=== PATIENT | female | born 1945 | race Caucasian/White ===

== ENCOUNTER 2017-02-04 08:43 | Observation (INO) | payer MEDICARE, MEDICAID ==
[2017-02-04] MEDS ORDERED: Ondansetron 4 MG/2 ML SDV IVPUSH ONE (08:59)
[2017-02-04] MEDS ORDERED: Sodium Chloride 0.9% 1,000 ML IV ONE (09:00)
[2017-02-04] MEDS ORDERED: Sodium Chloride 0.9% 5 ML Syringe FLUSH PRN (09:02)
[2017-02-04 09:36] LABS: SODIUM,NA 125 mmol/L (136-145)
[2017-02-04 09:37] LABS: CHLORIDE,CL 87 mmol/L (98-115)
[2017-02-04] MEDS ORDERED: Acetaminophen 325 MG Tab PO PRN (10:20)
--- NOTE | 2017-02-04 10:39 | EDM.PDOC ---
ED HPI GENERAL MEDICAL PROBLEM - General Chief Complaint: Gastrointestinal Problem Stated Complaint: NOT FEELING WELL..COLD?? Time Seen by Provider: 02/04/17 09:10 Source of Information: Reports: Patient History Limitations: Reports: No limitations - History of Present Illness INITIAL COMMENTS - FREE TEXT/NARRATIVE: 71-year-old female comes in today with complaints of not feeling well over the last 2 or 3 days. She reports some nausea, weakness and dizziness. She's been treating for an upper respiratory infection and is currently taking Augmentin. She was seen by Chani DAVIS this past Sunday. She reports that she has a history of salt deficiency in the past and does take salt tablets for this. She denies any headaches, chest pain, shortness of breath, abdominal pain. She does have a history of diverticulosis. She denies significant swelling or edema in her lower legs. She denies fevers or chills. He is brought in by her son to the ER for further evaluation. Onset: gradual Onset Date: 02/15/17 Duration: Day(s):, Getting worse Location: Reports: generalized Severity: moderate Improves with: Reports: None Worsens with: Reports: None Associated Symptoms: Reports: nausea/vomiting, weakness, other (dizziness). 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) - Related Data Allergies Allergy/AdvReac Type Severity Reaction Status Date / Time morphine Allergy Hives Verified 02/04/17 08:52 niacin Allergy Other Verified 02/04/17 08:52 Home Meds: Home Meds Amoxicillin/Clavulanate K [Augmentin 875 MG/125 MG] 1 tab PO BID 02/04/17 [ History] Aspirin 81 mg PO DAILY 02/04/17 [History] Calcium Carbonate/Vitamin D3 [Calcium 600 + Vit D 400 Softgl] 1 tab PO BID 02/04 [History] LORazepam [LORazepam] 0.5 mg PO BID 02/04/17 [History] Levothyroxine 150 mcg PO DAILY 02/04/17 [History] Losartan [Cozaar] 50 mg PO DAILY 02/04/17 [History] Meclizine [Antivert] 25 mg PO TID 02/04/17 [History] Metoprolol Succinate 25 mg PO DAILY 02/04/17 [History] Phenytoin 100 mg PO TID 02/04/17 [History] Ranitidine [Zantac] 150 mg PO BID 02/04/17 [History] amLODIPine Besylate [Amlodipine Besylate] 5 mg PO DAILY 02/04/17 [History] atorvaSTATin [Lipitor] 40 mg PO BEDTIME 02/04/17 [History] metFORMIN HCl [Metformin HCl ER] 500 mg PO 1800 02/04/17 [History] Past Medical History HEENT History: Reports: Cataract Cardiovascular History: Reports: High cholesterol, Hypertension Gastrointestinal History: Reports: Diverticulosis, GERD 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: Musculoskeletal History: Reports: Arthritis, Back pain, chronic, Osteoporosis Neurological History: Reports: Seizure Endocrine/Metabolic History: Reports: Diabetes, type II, Hypothyroidism, Obesity /BMI 30+, Osteoporosis, Vitamin D deficiency - Past Surgical History HEENT Surgical History: Reports: Cataract surgery GI Surgical History: Reports: Cholecystectomy, Other (see below) Other GI Surgeries/Procedures: rectoceal/cystoceal repair Social & Family History - Tobacco Use Smoking Status *Q: Never Smoker Second Hand Smoke Exposure: No - Caffeine Use Caffeine Use: Reports: Coffee - Recreational Drug Use Recreational Drug Use: No ED ROS GENERAL - Review of Systems Review Of Systems: See Below Constitutional: Reports: weakness, other (dizziness). Denies: fever, chills HEENT: Denies: Ear pain, Sinus problem, Vertigo Respiratory: Denies: Shortness of Breath, Wheezing, Cough Cardiovascular: Denies: Chest pain, Dyspnea on exertion, Palpitations Endocrine: Reports: fatigue, high glucose GI/Abdominal: Denies: Abdominal pain, Vomiting : Reports: no symptoms Musculoskeletal: Reports: no symptoms Skin: Reports: no symptoms ED EXAM, GENERAL - Physical Exam Exam: See Below Exam Limited By: No limitations General Appearance: alert, WD/WN, no apparent distress Eye Exam: bilateral eye: EOMI, PERRL Ears: normal external exam, normal canal, hearing grossly normal, normal TMs Nose: normal inspection Throat/Mouth: Normal inspection, Normal oropharynx, Normal voice, No airway compromise Head: atraumatic, normocephalic Neck: normal inspection, supple, non-tender. No: lymphadenopathy (L), lymphadenopathy (R), tender midline, thyromegaly Respiratory/Chest: no respiratory distress, lungs clear, normal breath sounds, no accessory muscle use, chest non-tender Cardiovascular: normal peripheral pulses, regular rate, rhythm, no murmur Peripheral Pulses: 2+: carotid (L), carotid (R) GI/Abdominal: normal bowel sounds, soft, non tender, no distention Back Exam: normal inspection, full range of motion. No: paraspinal tenderness, vertebral tenderness Extremities: normal inspection, normal range of motion, no pedal edema Neurological: alert, oriented, normal cognition, no motor/sensory deficits Psychiatric: normal affect, normal mood Skin Exam: Warm, Dry, Intact, Normal color, No rash Course - Vital Signs Last Recorded V/S: Last Vital Signs Temp 98.4 F 02/04/17 08:50 Pulse 68 02/04/17 08:50 Resp 20 02/04/17 08:50 BP 156/68 H 02/04/17 08:50 Pulse Ox 92 L 02/04/17 08:50 - Orders/Labs/Meds Orders: Active Orders 24 hr Category Date Time Status Admission Status [Patient Status] [ADT] Routine ADT 02/04/17 10:16 Ordered Patient Status [ADT] Routine ADT 02/04/17 10:21 Ordered Height and Weight [RC] DAILY Care 02/04/17 10:20 Ordered Intake and Output [RC] QSHIFT Care 02/04/17 10:21 Ordered Peripheral IV Care [RC] . DIRECTED Care 02/04/17 09:02 Active Up With Assistance [RC] ASDIRECTED Care 02/04/17 10:20 Ordered Vital Signs [RC] Q4H Care 02/04/17 10:21 Ordered OSMOLALITY - URINE Stat Lab 02/04/17 09:54 Ordered SODIUM,URINE RANDOM [URCHEM] Stat Lab 02/04/17 09:52 Uncollected TSH ULTRASENSITIVE [CHEM] Routine Lab 02/04/17 09:10 Received Acetaminophen [Tylenol] Med 02/04/17 10:20 Ordered 650 mg PO Q4H PRN Sodium Chloride 0.9% [Syrex Flush] Med 02/04/17 09:02 Active 5 ml FLUSH Q8HR PRN Peripheral IV Insertion Adult [OM.PC] Routine Oth 02/04/17 09:02 Ordered Medication Orders Acetaminophen (Tylenol) 650 mg PO Q4H PRN PRN Reason: analgesia/fever Sodium Chloride (Syrex Flush) 5 ml FLUSH Q8HR PRN PRN Reason: Keep Vein Open Labs: Laboratory Tests 02/04/17 02/04/17 Range/Units 09:10 09:10 WBC 9.9 (5.0-10.0) 10^3/uL RBC 4.51 (3.80-5.50) 10^6/uL Hgb 13.7 (12.0-16.0) g/dL Hct 40.3 (37.0-47.0) % MCV 89.3 (82.0-92.0) fL MCH 30.4 (27.0-31.0) pg MCHC 34.0 (32.0-36.0) g/dL RDW 12.2 (11.5-14.5) % Plt Count 344 H (150-300) 10^3/uL MPV 6.0 L (7.4-10.4) fL Neut % (Auto) 79.3 H (50.0-70.0) % Lymph % (Auto) 14.5 L (20.0-40.0) % Henderson % (Auto) 5.2 (2.0-8.0) % Eos % (Auto) 0.8 L (1.0-3.0) % Baso % (Auto) 0.2 (0.0-1.0) % Neut # (Auto) 7.9 H (2.5-7.0) 10^3/uL Lymph # (Auto) 1.4 (1.0-4.0) 10^3/uL Henderson # (Auto) 0.5 (0.1-0.8) 10^3/uL Eos # (Auto) 0.1 (0.1-0.3) 10^3/uL Baso # (Auto) 0.0 (0.0-0.1) 10^3/uL Sodium 125 L (136-145) mmol/L Potassium 4.1 (3.3-5.3) mmol/L Chloride 87 L* (98-115) mmol/L Carbon Dioxide 28.2 (21.0-32.0) mmol/L BUN 6 (6-25) mg/dL Creatinine 0.66 (0.51-1.17) mg/dL Est Cr Clr Drug Dosing 63.74 mL/min Estimated GFR (MDRD) > 60 mL/min Glucose 180 H (70-110) mg/dL Calcium 9.3 (8.7-10.3) mg/dL Meds: Medications Generic Name Dose Route Start Last Admin Trade Name Modesta PRN Reason Stop Dose Admin Acetaminophen 650 mg 02/04/17 10:20 Tylenol PO Q4H PRN analgesia/fever Sodium Chloride 5 ml 02/04/17 09:02 Syrex Flush FLUSH Q8HR PRN Keep Vein Open Discontinued Medications Generic Name Dose Route Start Last Admin Trade Name Modesta PRN Reason Stop Dose Admin Sodium Chloride 1,000 mls @ 999 mls/hr 02/04/17 09:00 02/04/17 09:18 Normal Saline IV 02/04/17 10:00 999 mls/hr .BOLUS ONE Administration Ondansetron HCl 4 mg 02/04/17 08:59 02/04/17 09:18 Zofran IVPUSH 02/04/17 09:00 4 mg ONETIME ONE Administration - Re-Assessments/Exams Free Text/Narrative Re-Assessment/Exam: 02/04/17 10:42 A she was given 1 L normal saline fluid and Zofran 4 mg ODT. Her nausea improved Departure - Departure Time of Disposition: 10:20 Disposition: Refer to Observation Condition: fair Clinical Impression: Hyponatremia, Electrolyte imbalance, Weakness generalized, Dizziness Forms: ED Department Discharge - My Orders Last 24 Hours: My Active Orders 02/04/17 09:02 Peripheral IV Care [RC] . DIRECTED Sodium Chloride 0.9% [Syrex Flush] 5 ml FLUSH Q8HR PRN Peripheral IV Insertion Adult [OM.PC] Routine 02/04/17 09:10 TSH ULTRASENSITIVE [CHEM] Routine 02/04/17 09:52 SODIUM,URINE RANDOM [URCHEM] Stat 02/04/17 09:54 OSMOLALITY - URINE Stat 02/04/17 10:16 Admission Status [Patient Status] [ADT] Routine 02/04/17 10:20 Height and Weight [RC] DAILY Up With Assistance [RC] ASDIRECTED Acetaminophen [Tylenol] 650 mg PO Q4H PRN 02/04/17 10:21 Patient Status [ADT] Routine Intake and Output [RC] QSHIFT Vital Signs [RC] Q4H - Assessment/Plan Last 24 Hours: My Active Orders 02/04/17 09:02 Peripheral IV Care [RC] . DIRECTED Sodium Chloride 0.9% [Syrex Flush] 5 ml FLUSH Q8HR PRN Peripheral IV Insertion Adult [OM.PC] Routine 02/04/17 09:10 TSH ULTRASENSITIVE [CHEM] Routine 02/04/17 09:52 SODIUM,URINE RANDOM [URCHEM] Stat 02/04/17 09:54 OSMOLALITY - URINE Stat 02/04/17 10:16 Admission Status [Patient Status] [ADT] Routine 02/04/17 10:20 Height and Weight [RC] DAILY Up With Assistance [RC] ASDIRECTED Acetaminophen [Tylenol] 650 mg PO Q4H PRN 02/04/17 10:21 Patient Status [ADT] Routine Intake and Output [RC] QSHIFT Vital Signs [RC] Q4H Assessment:: 1. Electrolyte imbalance with a hyponatremia and critically low chloride with associated symptoms of weakness and dizziness. 2. Admit the patient observational status for correction of her electrolyte imbalance. 3. Patient will be admitted to Jenn Ramirez NP [facility]. Plan: 1. Admission and observation 2. Correction of electrolyte imbalance hyponatremia and critically low chloride. 3. Jenn Ramirez NP assumed patient care.
[2017-02-04] MEDS ORDERED: Ondansetron 4 MG/2 ML SDV IV PRN (11:18)
--- NOTE | 2017-02-04 11:28 | PCM.HP ---
H&P History of Present Illness - General Date of Service: 02/04/17 Source of Information: Patient, Old records, Provider History Limitations: Reports: No limitations - History of Present Illness Initial Comments - Free Text/Narative: This is a 71 year old female who presented to the emergency room with concerns of weakness, dizziness, and nausea. The patient was diagnosed with a URI on 01/31 and placed on augmentin. She states those symptoms have improved. However, in the past 2-3 days she reports feeling quite weak and dizzy with nausea. Denies vomiting. She states she has had some diarrhea, but not much. The patient was found to have a sodium of 125 and chloride of 87 in the ER. She was given a 1 liter normal saline bolus and zofran IV with some relief. Patient was transferred to the medical floor for further treatment and monitoring. The patient reports a history of low sodium. She states she is unable to tolerate sodium pills due to GI upset, so she typically puts salt in water and drinks it. - Related Data Allergies/Adverse Reactions: Allergies Allergy/AdvReac Type Severity Reaction Status Date / Time morphine Allergy Hives Verified 02/04/17 08:52 niacin Allergy Other Verified 02/04/17 08:52 Home Medications: Home Meds Amoxicillin/Clavulanate K [Augmentin 875 MG/125 MG] 1 tab PO BID 02/04/17 [ History] Aspirin 81 mg PO DAILY 02/04/17 [History] Calcium Carbonate/Vitamin D3 [Calcium 600 + Vit D 400 Softgl] 1 tab PO BID 02/04 [History] LORazepam [LORazepam] 0.5 mg PO BID 02/04/17 [History] Levothyroxine 150 mcg PO DAILY 02/04/17 [History] Losartan [Cozaar] 50 mg PO DAILY 02/04/17 [History] Meclizine [Antivert] 25 mg PO TID 02/04/17 [History] Metoprolol Succinate 25 mg PO DAILY 02/04/17 [History] Phenytoin 100 mg PO TID 02/04/17 [History] Ranitidine [Zantac] 150 mg PO BID 02/04/17 [History] amLODIPine Besylate [Amlodipine Besylate] 5 mg PO DAILY 02/04/17 [History] atorvaSTATin [Lipitor] 40 mg PO BEDTIME 02/04/17 [History] metFORMIN HCl [Metformin HCl ER] 500 mg PO 1800 02/04/17 [History] Past Medical History HEENT History: Reports: Cataract Cardiovascular History: Reports: High cholesterol, Hypertension Gastrointestinal History: Reports: Diverticulosis, 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: Musculoskeletal History: Reports: Arthritis, Back pain, chronic, Osteoporosis Neurological History: Reports: Seizure Endocrine/Metabolic History: Reports: Diabetes, type II, Hypothyroidism, Obesity /BMI 30+, Osteoporosis, Vitamin D deficiency - Past Surgical History HEENT Surgical History: Reports: Cataract surgery GI Surgical History: Reports: Cholecystectomy, Other (see below) Other GI Surgeries/Procedures: rectoceal/cystoceal repair Social & Family History - Tobacco Use Smoking Status *Q: Never Smoker Second Hand Smoke Exposure: No - Caffeine Use Caffeine Use: Reports: Coffee - Recreational Drug Use Recreational Drug Use: No H&P Review of Systems - Review of Systems: Review Of Systems: See Below General: Reports: fever, chills, malaise, weakness, fatigue, decreased appetite HEENT: Reports: glasses, rhinitis, sinus congestion (mild), sore throat ( improved). Denies: ear pain, headaches Pulmonary: Reports: Cough (occasionally productive). Denies: Shortness of Breath Cardiovascular: Denies: chest pain, palpitations, edema Gastrointestinal: Reports: Diarrhea, Decreased appetite, Nausea. Denies: Abdominal pain, Constipation, Vomiting Neurological: Reports: Dizziness Exam - Exam Exam: See Below - Vital Signs Vital Signs: Last Vital Signs Temp 98.4 F 02/04/17 10:21 Pulse 66 02/04/17 10:21 Resp 18 02/04/17 10:21 BP 166/46 H 02/04/17 10:21 Pulse Ox 92 L 02/04/17 10:21 Weight: 183 lb - Exam Quality Assessment: DVT prophylaxis (Lovenox). No: supplemental oxygen, urinary catheter General: alert, oriented, cooperative, other (no acute distress) HEENT: Conjunctiva clear, Hearing intact, Posterior pharynx clear, TMs clear, Glasses. No: Mucosa moist & pink (mucosa pale and dry) Neck: supple, trachea midline. No: lymphadenopathy Lungs: Clear to auscultation, Normal respiratory effort Cardiovascular: regular rate, regular rhythm, normal S1, normal S2 Abdomen: normal bowel sounds, soft. No: tenderness Extremities: No: edema Skin: warm, dry Neuro Extensive - Mental Status: alert, oriented x3, normal mood/affect, normal cognition, memory intact Psychiatric: alert, normal affect, normal mood - Patient Data Result Diagrams: 02/04/17 09:10 02/04/17 09:10 *Q Meaningful Use (ADM) - VTE *Q VTE Criteria *Q: - Stroke *Q Stroke Criteria *Q: - AMI *Q AMI Criteria *Q: Problem List Initiated/Reviewed/Updated: Yes Orders Last 24hrs: Active Orders 24 hr Category Date Time Status Blood Glucose Check, Bedside [RC] BIDMEALS Care 02/04/17 11:18 Ordered Oxygen Therapy [RC] PRN Care 02/04/17 11:18 Ordered VTE/DVT Education [RC] PER UNIT ROUTINE Care 02/04/17 11:18 Ordered Vital Signs [RC] Q4H Care 02/04/17 11:18 Ordered [employer] Diet [DIET] Diet 02/04/17 Lunch Active Fluid Restriction [DIET] Diet 02/04/17 Lunch Ordered Heart Healthy Diet [DIET] Diet 02/04/17 Lunch Active CBC WITH AUTO DIFF [HEME] AM Lab 02/05/17 05:11 Ordered COMPREHENSIVE METABOLIC PN,CMP [CHEM] AM Lab 02/05/17 05:11 Ordered OSMOLALITY - SERUM [REF] Routine Lab 02/04/17 11:20 Ordered Amoxicillin/Clavulanate K [Augmentin 875 MG/125 MG] Med 02/04/17 21:00 Ordered 1 tab PO BID Aspirin Med 02/05/17 09:00 Ordered 81 mg PO DAILY Calcium Carbonate/Vitamin D3 [Calcium 600 + Vit D 400 Med 02/04/17 21:00 Ordered Softgl] 1 tab PO BID LORazepam [Ativan] Med 02/04/17 21:00 Ordered 0.5 mg PO BID Levothyroxine [Levothyroxine] Med 02/05/17 09:00 Ordered 150 mcg PO DAILY Losartan [Cozaar] Med 02/05/17 09:00 Ordered 50 mg PO DAILY Meclizine [Antivert] Med 02/04/17 14:00 Ordered 25 mg PO TID Metoprolol Succinate [Toprol XL] Med 02/05/17 09:00 Ordered 25 mg PO DAILY Ondansetron [Zofran] Med 02/04/17 11:18 Ordered 4 mg IV Q4H PRN Phenytoin Med 02/04/17 14:00 Ordered 100 mg PO TID Ranitidine [Zantac] Med 02/04/17 21:00 Ordered 150 mg PO BID Sodium Chloride 0.9% [Normal Saline] 1,000 ml Med 02/04/17 11:30 Ordered IV ASDIRECTED amLODIPine [Norvasc] Med 02/05/17 09:00 Ordered 5 mg PO DAILY atorvaSTATin [Lipitor] Med 02/04/17 21:00 Ordered 40 mg PO BEDTIME metFORMIN [Glucophage XR] Med 02/04/17 18:00 Ordered 500 mg PO 1800 Resuscitation Status Routine Resus Stat 02/04/17 11:18 Ordered Medication Orders Acetaminophen (Tylenol) 650 mg PO Q4H PRN PRN Reason: analgesia/fever Sodium Chloride (Normal Saline) 1,000 mls @ 100 mls/hr IV ASDIRECTED JACQUELINE Ondansetron HCl (Zofran) 4 mg IV Q4H PRN PRN Reason: Nausea/Vomiting Sodium Chloride (Syrex Flush) 5 ml FLUSH Q8HR PRN PRN Reason: Keep Vein Open Assessment/Plan Comment:: PRIMARY ASSESSMENT/PLAN: Acute on chronic hyponatremia. Na 125, chloride 87. Spot urine sodium, urine and serum osmolality pending. NS @ 100 mL/hr. Fluid restriction of 1200 mL/day. CMP in AM. URI, improving. Continue course of oral Augmentin. WBC 9.9 with slight left shift. SECONDARY ASSESSMENT/PLAN: Hypertension. Continue losartan, toprol XL, and norvasc. Hypercholesterolemia. Continue lipitor. Recent LDL of 84. Hypothyroidism. TSH 0.90. Continue synthroid at 150 mcg. Type 2 diabetes mellitus. Accuchecks BID. Continue metformin. Recent A1C of 6.2. Obesity. Seizure disorder, epilepsy. Continue dilantin. Fibromyositis. History of dizziness. May continue meclizine. Anxiety disorder. Continue lorazepam. GERD. Continue zantac. Vitamin D deficiency. Continue oral vitamin D. DVT prophylaxis. Score of 3. Lovenox daily. Overall plan: Replenish sodium level slowly with IV fluids and fluid restriction. Repeat labs in the morning. The treatment plan was reviewed with Dr. Baker. He is in agreement with the plan of care.
[2017-02-04] MEDS: Sodium Chloride 0.9% 1,000 ML IV SCH ×2 (12:51→23:08)
[2017-02-04] MEDS: Meclizine 25 MG Tab PO SCH ×2 (13:02→20:26)
[2017-02-04] MEDS: Enoxaparin 40 MG/0.4 ML Syringe SUBCUT SCH (13:02)
[2017-02-04] MEDS: Phenytoin 100 MG Cap.ER PO SCH ×2 (13:03→20:26)
[2017-02-04] MEDS: metFORMIN 500 MG Tab.ER PO SCH (17:58)
[2017-02-04] MEDS: Amoxicillin/Clavulanate K 875-125 MG Tab PO SCH (20:26)
[2017-02-04] MEDS: LORazepam 0.5 MG Tab PO SCH (20:26)
[2017-02-04] MEDS: Calcium Citrate/Vitamin D3 315 MG-250 Unit Tab PO SCH (20:28)
[2017-02-04] MEDS ORDERED: atorvaSTATin 10 MG Tab PO SCH (21:00)
[2017-02-05] MEDS: Levothyroxine 50 MCG Tab PO SCH (06:07)
[2017-02-05 08:02] LABS: CHLORIDE,CL 92 mmol/L (98-115); SODIUM,NA 127 mmol/L (136-145)
[2017-02-05] MEDS: Aspirin 81 MG Tab.Chew PO SCH (08:58)
[2017-02-05] MEDS: Amoxicillin/Clavulanate K 875-125 MG Tab PO SCH ×2 (08:58→21:25)
[2017-02-05] MEDS: Phenytoin 100 MG Cap.ER PO SCH ×3 (08:58→21:27)
[2017-02-05] MEDS: Metoprolol Succinate 25 MG Tab.ER PO SCH (08:59)
[2017-02-05] MEDS: Calcium Citrate/Vitamin D3 315 MG-250 Unit Tab PO SCH ×2 (08:59→21:27)
[2017-02-05] MEDS: LORazepam 0.5 MG Tab PO SCH ×2 (09:00→21:23)
[2017-02-05] MEDS: amLODIPine 5 MG Tab PO SCH (09:01)
[2017-02-05] MEDS: Losartan 50 MG Tab PO SCH (09:01)
[2017-02-05] MEDS: Meclizine 25 MG Tab PO SCH ×3 (09:01→21:22)
[2017-02-05] MEDS: Enoxaparin 40 MG/0.4 ML Syringe SUBCUT SCH (09:02)
[2017-02-05] MEDS: Sodium Chloride 0.9% 1,000 ML IV SCH (09:03)
--- NOTE | 2017-02-05 11:09 | PCM.PN ---
- General Info Date of Service: 02/05/17 Functional Status: Reports: tolerating diet. Denies: new symptoms - Review of Systems General: Reports: Weakness (Some improvement however home health consultation today) HEENT: Reports: no symptoms Pulmonary: Reports: cough, sputum. Denies: wheezing Cardiovascular: Reports: Lightheadedness. Denies: Chest Pain, Orthopnea, PND, Edema Gastrointestinal: Reports: Nausea (Some improvement in nausea) Genitourinary: Reports: no symptoms Musculoskeletal: Reports: other (Week knees) Skin: Reports: no symptoms Neurological: Reports: Seizure (Seizure disorder stable, on Dilantin,), Tremors (Tremors to knees), Weakness, Gait Disturbance. Denies: Headache, Numbness, Syncope Psychiatric: Reports: no symptoms - Patient Data Vitals - most recent: Last Vital Signs Temp 97.1 F 02/05/17 07:00 Pulse 65 02/05/17 08:59 Resp 15 02/05/17 07:00 BP 155/69 H 02/05/17 09:01 Pulse Ox 93 L 02/05/17 07:35 Orthostatic Blood Pressure [ 165/77 Standing] Orthostatic Blood Pressure [ 163/77 Sitting] Orthostatic Blood Pressure [ 155/69 Supine] Weight - most recent: 180 lb 6.4 oz I&O - last 24 hours: Intake & Output 02/04/17 02/05/17 02/05/17 22:59 06:59 14:59 Intake Total 1641 1179 Output Total 1300 1600 Balance 341 -421 Lab Results last 24 hrs: Laboratory Results - last 24 hr 02/04/17 02/04/17 02/05/17 Range/Units 13:00 17:57 07:19 WBC (5.0-10.0) 10^3/uL RBC (3.80-5.50) 10^6/uL Hgb (12.0-16.0) g/dL Hct (37.0-47.0) % MCV (82.0-92.0) fL MCH (27.0-31.0) pg MCHC (32.0-36.0) g/dL RDW (11.5-14.5) % Plt Count (150-300) 10^3/uL MPV (7.4-10.4) fL Neut % (Auto) (50.0-70.0) % Lymph % (Auto) (20.0-40.0) % Norton % (Auto) (2.0-8.0) % Eos % (Auto) (1.0-3.0) % Baso % (Auto) (0.0-1.0) % Neut # (Auto) (2.5-7.0) 10^3/uL Lymph # (Auto) (1.0-4.0) 10^3/uL Norton # (Auto) (0.1-0.8) 10^3/uL Eos # (Auto) (0.1-0.3) 10^3/uL Baso # (Auto) (0.0-0.1) 10^3/uL Sodium (136-145) mmol/L Potassium (3.3-5.3) mmol/L Chloride (98-115) mmol/L Carbon Dioxide (21.0-32.0) mmol/L BUN (6-25) mg/dL Creatinine (0.51-1.17) mg/dL Est Cr Clr Drug Dosing mL/min Estimated GFR (MDRD) mL/min Glucose (70-110) mg/dL POC Glucose 156 H 120 H (74-106) mg/dl Calcium (8.7-10.3) mg/dL Total Bilirubin (0.2-1.0) mg/dL AST (15-37) U/L ALT (12-78) U/L Alkaline Phosphatase (46-116) IU/L Total Protein (6.4-8.2) g/dL Albumin (3.00-4.80) g/dL Ur Random Sodium 112.0 (40.0-220.0) mmol/L 02/05/17 02/05/17 Range/Units 07:20 07:20 WBC 12.4 H (5.0-10.0) 10^3/uL RBC 4.07 (3.80-5.50) 10^6/uL Hgb 12.3 (12.0-16.0) g/dL Hct 36.8 L (37.0-47.0) % MCV 90.4 (82.0-92.0) fL MCH 30.3 (27.0-31.0) pg MCHC 33.5 (32.0-36.0) g/dL RDW 12.3 (11.5-14.5) % Plt Count 339 H (150-300) 10^3/uL MPV 5.9 L (7.4-10.4) fL Neut % (Auto) 74.7 H (50.0-70.0) % Lymph % (Auto) 17.5 L (20.0-40.0) % Norton % (Auto) 5.8 (2.0-8.0) % Eos % (Auto) 1.6 (1.0-3.0) % Baso % (Auto) 0.4 (0.0-1.0) % Neut # (Auto) 9.3 H (2.5-7.0) 10^3/uL Lymph # (Auto) 2.2 (1.0-4.0) 10^3/uL Norton # (Auto) 0.7 (0.1-0.8) 10^3/uL Eos # (Auto) 0.2 (0.1-0.3) 10^3/uL Baso # (Auto) 0.0 (0.0-0.1) 10^3/uL Sodium 127 L (136-145) mmol/L Potassium 3.9 (3.3-5.3) mmol/L Chloride 92 L (98-115) mmol/L Carbon Dioxide 28.2 (21.0-32.0) mmol/L BUN 5 L (6-25) mg/dL Creatinine 0.63 (0.51-1.17) mg/dL Est Cr Clr Drug Dosing 66.77 mL/min Estimated GFR (MDRD) > 60 mL/min Glucose 121 H (70-110) mg/dL POC Glucose (74-106) mg/dl Calcium 8.6 L (8.7-10.3) mg/dL Total Bilirubin 0.2 (0.2-1.0) mg/dL AST 38 H (15-37) U/L ALT 73 (12-78) U/L Alkaline Phosphatase 91 (46-116) IU/L Total Protein 7.2 (6.4-8.2) g/dL Albumin 2.93 L (3.00-4.80) g/dL Ur Random Sodium (40.0-220.0) mmol/L Med Orders - Current: Current Medications Acetaminophen (Tylenol) 650 mg PO Q4H PRN PRN Reason: analgesia/fever Amlodipine Besylate (Norvasc) 5 mg PO DAILY [facility] Last Admin: 02/05/17 09:01 Dose: 5 mg Amoxicillin/Clavulanate Potassium (Augmentin 875 Mg/125 Mg) 1 tab PO BID [facility] Last Admin: 02/05/17 08:58 Dose: 1 tab Aspirin (Aspirin) 81 mg PO DAILY [facility] Last Admin: 02/05/17 08:58 Dose: 81 mg Atorvastatin Calcium (Lipitor) 40 mg PO BEDTIME [facility] Calcium Citrate (Calcium Citrate + D) 2 tab PO BID [facility] Last Admin: 02/05/17 08:59 Dose: 2 tab Enoxaparin Sodium (Lovenox) 40 mg SUBCUT DAILY [facility] Last Admin: 02/05/17 09:02 Dose: 40 mg Sodium Chloride (Normal Saline) 1,000 mls @ 100 mls/hr IV ASDIRECTED [facility] Last Admin: 02/05/17 09:03 Dose: 100 mls/hr Levothyroxine Sodium (Synthroid) 150 mcg PO ACBREAKFAST [facility] Last Admin: 02/05/17 06:07 Dose: 150 mcg Lorazepam (Ativan) 0.5 mg PO BID [facility] Last Admin: 02/05/17 09:00 Dose: 0.5 mg Losartan Potassium (Cozaar) 50 mg PO DAILY [facility] Last Admin: 02/05/17 09:01 Dose: 50 mg Meclizine HCl (Antivert) 25 mg PO TID [facility] Last Admin: 02/05/17 09:01 Dose: 25 mg Metformin HCl (Glucophage Xr) 500 mg PO DAILY@1800 [facility] Last Admin: 02/04/17 17:58 Dose: 500 mg Metoprolol Succinate (Toprol Xl) 25 mg PO DAILY [facility] Last Admin: 02/05/17 08:59 Dose: 25 mg Ondansetron HCl (Zofran) 4 mg IV Q4H PRN PRN Reason: Nausea/Vomiting Last Admin: 02/04/17 20:26 Dose: 4 mg Phenytoin Sodium (Phenytoin) 100 mg PO TID [facility] Last Admin: 02/05/17 08:58 Dose: 100 mg Ranitidine HCl (Zantac) 150 mg PO BID [facility] Last Admin: 02/05/17 08:58 Dose: 150 mg Sodium Chloride (Syrex Flush) 5 ml FLUSH Q8HR PRN PRN Reason: Keep Vein Open Discontinued Medications Atorvastatin Calcium (Lipitor) 40 mg PO BEDTIME [facility] Last Admin: 02/04/17 20:26 Dose: 40 mg Sodium Chloride (Normal Saline) 1,000 mls @ 999 mls/hr IV .BOLUS ONE Stop: 02/04/17 10:00 Last Admin: 02/04/17 09:18 Dose: 999 mls/hr Ondansetron HCl (Zofran) 4 mg IVPUSH ONETIME ONE Stop: 02/04/17 09:00 Last Admin: 02/04/17 09:18 Dose: 4 mg - Exam Quality Assessment: No: supplemental oxygen General: alert, oriented, cooperative. No: no acute distress Neck: supple. No: +2 carotid pulse wo bruit, carotid bruit, JVD Lungs: Clear to auscultation, Normal respiratory effort Cardiovascular: Regular Rate, Regular Rhythm Abdomen: bowel sounds present, soft, no tenderness, no distension Back Exam: No: CVA tenderness (L), CVA tenderness (R) Extremities: no edema Peripheral Pulses: 2+: radial (L), radial (R) Neurological: normal speech Psy/Mental Status: alert, normal affect, normal mood - Problem List Review Problem List Initiated/Reviewed/Updated: Yes - My Orders Last 24 Hours: My Active Orders 02/05/17 10:18 CXR [Chest 2V] [CR] Routine 02/05/17 10:22 PHENYTOIN [REF] Routine - Plan Plan:: Brief history, 71-year-old female admitted yesterday due to dizziness, weakness and nausea along with electrolyte disturbance with low sodium level. Patient does have a history of low sodium level in which she used to be on sodium pills however these make her quite nauseated and now she takes oral sodium resolved and salt water admits to sometimes having to take salt directly from a salt shaker. She was recently treated for upper respiratory infection on January 31 and was placed on Augmentin. She also been on ciprofloxacin December 2016 due to sinusitis. She has hypothyroidism in which he takes Synthroid and her TSH level is been normal recently. In reviewing her EMR from [facility] I do not see that she's ever had a full workup of her low sodium level. My interview with the patient is morning reveal some polydipsia. She does have seizure disorders and does take Dilantin. She was admitted and placed on normal saline and fluid restriction to help increase her sodium level. Some labs are still pending on her. Pertinent diagnostics; EKG, March 2016 Normal sinus rhythm: Left bundle branch block Holter monitor, 2012, Sinus bradycardia was present 21% of the scan with a minimum of 51 bpm Sinus tachycardia was present less than 1% of the scan with a maximum of 113. Average heart rate was 68 bpm. Rare SVEs Echo, 2012, EF 55% CODE STATUS; full code PRIMARY ASSESSMENT/PLAN: Hyponatremia, euvolemic, with history of acute hyponatremia, questionable etiology, although we will continue to rule out SIADH--likely with her [employer] seizure disorder, and on Dilantin, along with her polydipsia all point to likely causative of her hyponatremia. urine osmolality still pending, with her history of seizure disorder and taking Dilantin, assess Dilantin level, some improvement today with fluid restriction. Now that she is euvolemic, decrease her IV rate to 50 cc per hour and further restrict her fluid intake to 1000 cc per day. Spot urine sodium is normal. urine and serum osmolality remains pending. Orthostatics negative. Polydipsia, patient was educated on 1000 cc of fluid per day. URI, nonspecific, slight elevation in white count with reactive thrombocytosis, mild elevation in neutrophils however improving. Prudent to continue with Augmentin, chest x-ray today. SECONDARY ASSESSMENT/PLAN: Hypertension. Continue losartan, toprol XL, and norvasc. Hypercholesterolemia. Continue lipitor. Recent LDL of 84. Hypothyroidism. TSH 0.90. Continue synthroid at 150 mcg--likely not cause of hyponatremia Type 2 diabetes mellitus. Accuchecks BID. Continue metformin at current dosage, Recent A1C of 6.2. Obesity. BMI 31 Seizure disorder, epilepsy. Continue dilantin however we'll assess Dilantin levels today. Levels last year subtherapeutic. No recent seizure activity. Dilantin could be cause of her low sodium level. Fibromyositis. Recent injection. Seems stable History of dizziness. Some improvement, orthostatics negative, likely peripheral Anxiety disorder. Continue lorazepam. GERD. Continue zantac. Vitamin D deficiency. Continue oral vitamin D. DVT prophylaxis. Score of 3. Lovenox daily. Overall plan: Further fluid restriction, Dilantin level, rule out SIADH, reduce IV fluids educated her on polydipsia, Repeat labs in the morning.
[2017-02-05] MEDS ORDERED: Sodium Chloride 0.9% 1,000 ML IV SCH (11:15)
[2017-02-05] MEDS: metFORMIN 500 MG Tab.ER PO SCH (17:35)
[2017-02-05] MEDS ORDERED: atorvaSTATin 40 MG Tab PO SCH (21:00)
[2017-02-06] MEDS: Levothyroxine 50 MCG Tab PO SCH (06:21)
[2017-02-06 07:28] LABS: CHLORIDE,CL 93 mmol/L (98-115); SODIUM,NA 128 mmol/L (136-145)
[2017-02-06] MEDS: Meclizine 25 MG Tab PO SCH ×2 (08:17→13:45)
[2017-02-06] MEDS: Aspirin 81 MG Tab.Chew PO SCH (08:17)
[2017-02-06] MEDS: Calcium Citrate/Vitamin D3 315 MG-250 Unit Tab PO SCH (08:18)
[2017-02-06] MEDS: Amoxicillin/Clavulanate K 875-125 MG Tab PO SCH (08:18)
[2017-02-06] MEDS: Enoxaparin 40 MG/0.4 ML Syringe SUBCUT SCH (08:19)
[2017-02-06] MEDS: Losartan 50 MG Tab PO SCH (08:19)
[2017-02-06] MEDS: Metoprolol Succinate 25 MG Tab.ER PO SCH (08:20)
[2017-02-06] MEDS: amLODIPine 5 MG Tab PO SCH (08:20)
[2017-02-06] MEDS: Phenytoin 100 MG Cap.ER PO SCH ×2 (08:20→13:45)
[2017-02-06] MEDS: LORazepam 0.5 MG Tab PO SCH (08:29)
[2017-02-06 08:38] VITALS: BP 135/67
--- NOTE | 2017-02-09 08:04 | DISCH ---
FINAL DIAGNOSES: 1. 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 Urine osmolality, however, normal, but this was latest, much improved with sodium intake and fluid restriction. 2. Upper respiratory infection, nonspecific. Continue with Augmentin, much improved. 3. Hypertension: Controlled on losartan and Toprol and Norvasc. 4. Hypercholesterolemia: Controlled on Lipitor, recent LDL 84. 5. Hypothyroidism. TSH is normal. Continue with Synthroid. 6. Type 2 diabetes. A1c 6.2%. 7. Obesity, BMI 31. 8. Seizure disorder with epilepsy, Dilantin level subtherapeutic 2.8. I got this two days after her discharge. We will follow up in the clinic. 9. Fibromyositis. 10.History of dizziness, marked improvement. Orthostatics were negative, likely peripheral. 11.Anxiety disorder. 12.Gastroesophageal reflux disease. 13.Vitamin D deficiency. HISTORY: This is 71-year-old female, who was admitted for dizziness, weakness, nausea along with electrolyte disturbance with low sodium level. The patient does have a history of low sodium level in which she used to be on sodium pills, however, these made her quite nauseated. She just now dissolves them in water or she just uses unmeasured table salt, takes it twice a day. She was recently treated for an upper respiratory infection on 01/31/2017, and she has improved on that. She is basically admitted for working diagnosis of hyponatremia with some weakness and some electrolyte disturbances. PERTINENT DIAGNOSTICS: EKG March 2016 shows normal sinus rhythm with left bundle branch block. She had a Holter monitor in 2012 which showed sinus rush with 21% at that time, with a minimum heart rate of 51, sinus tach less than 1%, average heart rate was 68, there were rare PVCs. Echo 2012 shows EF of 55%. HOSPITAL COURSE: Hospital course went well. She was in two days observation. She did improve. Her sodium level on admission was 125, on discharge 128. We did put her on fluid restriction. She was discharged on a 1200 mL of fluid restriction. She was also instructed to take sodium twice a day. We did assess her Dilantin level, it is subtherapeutic at 2.8. Reference range here at [facility] is 10-20, and that will have to be adjusted on followup. She did have a slight elevation of white count with reactive thrombocytosis, mild elevation of neutrophils, however, those were all pending. Chest x-ray was clear. LABORATORY DATA: On discharge, white count coming down, it is now 10.2. Hemoglobin hematocrit normal. Percent neutrophils were normal at 68. Sodium was 128, potassium 4.0, BUN creatinine normal. Dilantin level 2.8. Urine random spot sodium was 112 which was normal. Urine osmolality was 362 with a reference range of 300 to 900. No microbiology report. Chest x-ray was normal. PHYSICAL EXAMINATION ON DISCHARGE: VITAL SIGNS: Temperature normal, blood pressure 135/67, orthostatics were normal, heart rate 63. GENERAL: She was euvolemic. She did have a cough that was improving. CHEST: Clear to auscultation. CV: Regular rate and rhythm. EXTREMITIES: During her admission stay, we did notice that she was somewhat weak in her lower extremities. She did ambulate in the halls prior to discharge. She did quite well however, she needs little bit of help. MEDICATIONS ON DISCHARGE: 1. Continue with amoxicillin. 2. Continue with all other home medications including meclizine. DISPOSITION: 1. The patient will be discharged home. She has exhausted her observation stay here. There was no admitting criteria to place her in inpatient status. She will receive [facility] Home [facility] physical therapy and occupational therapy. She will need home health for help teaching for medication management which includes exact the sodium intake and at home she is to take one-quarter teaspoon and dissolve it in 4 to 6 ounces glass of water twice a day. Home Health is supposed to develop and assess for in- home safety assessment and instruction because the patient was mildly weak in her legs so she would place her at increased fall risk also due to her strength and endurance. At this time, the patient will be homebound due to her limited decrease in strength and endurance due to her unsteady gait and her low sodium level potentiating syncope episodes. The patient is on a 1200 mL fluid restriction diet per day. 2. Considerations to follow up: Consider increasing her Phenytoin medication as she did have subtherapeutic Dilantin levels. /[id number]/MODL MTDD
== END 2017-02-06 16:20 | disposition home health service (06) ==
LOC: KA.ED 08:43 → KA.MS 10:23
PROVIDERS: ADMIT Physician Assistant; ATTEND Nurse Practitioner Family
DX: E87.1 Hypo-osmolality and hyponatremia (principal); J06.9 Acute upper respiratory infection, unspecified; I10 Essential (primary) hypertension; E78.00 Pure hypercholesterolemia, unspecified; E03.9 Hypothyroidism, unspecified; E11.9 Type 2 diabetes mellitus without complications; E66.9 Obesity, unspecified; K21.9 Gastro-esophageal reflux disease without esophagitis; F41.9 Anxiety disorder, unspecified; E55.9 Vitamin D deficiency, unspecified; Z88.8 Allergy status to other drugs, medicaments and biological substances; Z79.82 Long term (current) use of aspirin; Z79.899 Other long term (current) drug therapy; Z90.49 Acquired absence of other specified parts of digestive tract; Z98.890 Other specified postprocedural states; G40.909 Epilepsy, unspecified, not intractable, without status epilepticus; M79.7 Fibromyalgia
CPT/HCPCS: 36415; 71020; 80048; 80053; 80185; 82962; 83930; 83935; 84300; 84443; 85025; 96361; 96372; 96374; 96376; 99284; A9270; G0378; J1650; J2405; J7030; 99285

== ENCOUNTER 2017-02-14 11:28 | Observation (INO) | payer MEDICARE, MEDICAID ==
[2017-02-14] MEDS: Sodium Chloride 0.9% 1,000 ML IV SCH ×2 (12:05→22:05)
[2017-02-14] MEDS ORDERED: Albuterol HFA 18 Gm Inhaler INH PRN (15:48)
[2017-02-14] MEDS: Meclizine 25 MG Tab PO PRN (17:31)
[2017-02-14] MEDS: metFORMIN 500 MG Tab.ER PO SCH (17:31)
[2017-02-14] MEDS: LORazepam 0.5 MG Tab PO PRN (17:31)
[2017-02-14] MEDS: atorvaSTATin 40 MG Tab PO SCH (20:31)
[2017-02-14] MEDS: Phenytoin 100 MG Cap.ER PO SCH (20:31)
[2017-02-15 07:42] LABS: CHLORIDE,CL 94 mmol/L (98-115); SODIUM,NA 128 mmol/L (136-145)
[2017-02-15] MEDS: Sodium Chloride 0.9% 1,000 ML IV SCH ×3 (08:18→19:50)
[2017-02-15] MEDS: Phenytoin 100 MG Cap.ER PO SCH ×3 (08:20→21:26)
[2017-02-15] MEDS: Aspirin 81 MG Tab.Chew PO SCH (08:20)
[2017-02-15] MEDS: Metoprolol Succinate 25 MG Tab.ER PO SCH (08:20)
[2017-02-15] MEDS: Vitamin B Complex Tab PO SCH (08:20)
[2017-02-15] MEDS: Levothyroxine 75 MCG Tab PO SCH (08:21)
[2017-02-15] MEDS: amLODIPine 5 MG Tab PO SCH (08:22)
[2017-02-15] MEDS: Losartan 50 MG Tab PO SCH (08:22)
[2017-02-15] MEDS: Meclizine 25 MG Tab PO PRN ×2 (12:38→21:26)
[2017-02-15] MEDS: LORazepam 0.5 MG Tab PO PRN ×2 (12:38→21:26)
--- NOTE | 2017-02-15 16:57 | PN ---
02/15/2017 PATIENT NAME: ONEAL GARG CHIEF COMPLAINT: Does feel better. Sodium is coming up. BRIEF HISTORY: This 71-year-old female, who was recently discharged from the hospital about 2 weeks ago due to hyponatremia of unknown etiology, thought to be possibly SIADH and polydipsia related. Seen and was followed up with Chani Stauffer at the [facility], and she did have severe hyponatremia again at 120 with some complaints of dizziness and weakness. She did not have any chest pains, palpitations, seizures or any shortness of breath, but she did have some generalized weakness, mainly in her joints when sitting. She does have a history of anxiety, and she is not on any SSRIs. Also, has a history of diabetes type 2, she is on metformin. She does take sodium at home somewhat indiscriminately. She states she cannot take the oral tablets of sodium due to it makes her quite a bit of nauseous. Sodium level at the clinic was 120. She was admitted back into the hospital in an observation status due to hyponatremia and mild leukocytosis for more followup and workup. LABORATORY DATA: This morning, sodium is 128, much improved since admission; potassium 4.7; creatinine 0.67 with an eGFR greater than 60; glucose 106; calcium 8.2. There is no microbiology ordered. PHYSICAL EXAMINATION: VITAL SIGNS: Blood pressure 130/55, temperature 98.5, heart rate 68, respiratory rate 20, O2 sats 94% on room air. She is on a fluid restriction diet. GENERAL: The patient is alert and oriented, sitting on the side of bed. She is euvolemic. LUNGS: Clear. HEART: Rate regular. No S3 sounds. No signs of edema. NECK: There is negative JVD. She does have a history of seizure disorders, for which she is on Dilantin. She has subtherapeutic phenytoin level of 2.8. ASSESSMENT AND PLAN: 1. Hyponatremia, euvolemic, questionable etiology, possible SIADH. However, she does not have any signs and symptoms of fluid overload status. Urine osmolality studies on previous admission were normal; however, they were late studies. Random urine sodium on previous study was normal. Likely, I will get a Nephrology consult today. 2. Leukocytosis. At [facility], urine was obtained, she is negative for UTI. 3. History of seizures. She is on Dilantin. Do not know if she is getting any benefit from this as she was seizure free with very low subtherapeutic phenytoin levels. Risks versus benefits were discussed with her. Possible on discharge or soon thereafter may take her off this. We will discuss it with the patient. 4. Weakness. Social Service consult was placed in. SECONDARY ASSESSMENT: 1. Hypertension. She is on ARB. Blood pressure is 130/55 on Norvasc. She has no edema. She is also on metoprolol. 2. Diabetes. She is on Glucophage. 3. Gastroesophageal reflux disease. She takes Zantac. OVERALL PLAN: We will place her on a fluid restriction diet of 1200 mL per day. Continue with normal saline; however, we will reduce the rate to 75 mL/hour. We will have her increase her sodium intake to 2 teaspoons p.o. b.i.d. /[id number]/MODL MTDD
[2017-02-15] MEDS: Famotidine 20 MG Tab PO SCH (18:12)
[2017-02-15] MEDS: metFORMIN 500 MG Tab.ER PO SCH (18:13)
[2017-02-15] MEDS: atorvaSTATin 40 MG Tab PO SCH (21:26)
[2017-02-16] MEDS: Famotidine 20 MG Tab PO SCH (06:20)
[2017-02-16 06:39] VITALS: BP 140/66
[2017-02-16] MEDS: Vitamin B Complex Tab PO SCH (08:06)
[2017-02-16] MEDS: Meclizine 25 MG Tab PO PRN (08:06)
[2017-02-16] MEDS: Levothyroxine 75 MCG Tab PO SCH (08:06)
[2017-02-16] MEDS: Phenytoin 100 MG Cap.ER PO SCH (08:07)
[2017-02-16] MEDS: Aspirin 81 MG Tab.Chew PO SCH (08:07)
[2017-02-16] MEDS: Metoprolol Succinate 25 MG Tab.ER PO SCH (08:07)
[2017-02-16] MEDS: amLODIPine 5 MG Tab PO SCH (08:08)
[2017-02-16] MEDS: Losartan 50 MG Tab PO SCH (08:08)
[2017-02-16 08:56] LABS: CHLORIDE,CL 95 mmol/L (98-115); SODIUM,NA 129 mmol/L (136-145)
[2017-02-16] MEDS: LORazepam 0.5 MG Tab PO PRN (08:59)
[2017-02-16] MEDS ORDERED: Sodium Chloride 1 GM Tab PO SCH (12:00)
--- NOTE | 2017-02-19 13:32 | DISCH ---
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 SECONDARY FINAL DIAGNOSES: 1. Hypertension. 2. Hypercholesterolemia. 3. Hypothyroidism which is controlled. TSH normal. 4. Type 2 diabetes. 5. Obesity. 6. History of seizure disorder with epilepsy, on Dilantin with very low subtherapeutic levels of 2.8. 7. Fibromyositis. 8. History of dizziness. 9. Anxiety disorder. 10.Gastroesophageal reflux disease. 11.Vitamin D deficiency. 12.History of smoker. BRIEF HISTORY: This is a 71-year-old female who was recently discharged from the hospital for low-sodium level, was readmitted with a sodium level of 120. Last time she was discharged two weeks ago, we did get it as high as 128. She was on fluid restriction at home. She was told to take increase in sodium. However, she does this somewhat indiscriminately. She was seen in the [facility] as a followup. She had ongoing dizziness and weakness. It was noted that her sodium was 120. So we did admit her for fluid restriction and sodium chloride infusion. At that time, she had no chest pains, palpitations. No seizures even though she does not have a history of a seizure disorder. She is on Dilantin. She had no shortness of breath but she does complain of some generalized weakness and stiffness in the joints. Does have a history of anxiety, takes lorazepam. She is not on any SSRIs. She does have diabetes type 2. She is on metformin. Last A1c was 6.2. She does have mild cardiac history with some Holter monitors due to PVCs and sinus bradycardia. Her last echo, I do not have, however, do know it was 2012. Hospital course went well. Her sodium level with fluid restriction of 1200 mL per day did increase from 120 on admission to 129 on discharge today. Her vital signs remained stable. She had negative orthostatics. She appeared euvolemic. Did not appear to be overload. LABORATORY DATA: Sodium 129 on discharge, potassium 4.5, chloride 95, BUN 8 with a creatinine of 0.66. She did have a serum osmolality of 261 that is low. Urine osmolality 432. Urine sodium urine concentration 138, urine potassium concentration 36.7, urine chloride concentration 153. I do not know normal ranges. What is pending is a cortisol level on discharge, 24-hour sodium level, total urine volume, 24-hour potassium level. Those are all pending on discharge. Serum thyroid is 1.0, serum calcium 8.2. Vital signs are stable. Again, negative orthostatics. She had no adverse reactions to side effects or medications. CONSULTATIONS: I did consult with manager surgical on discharge. He feels it is likely due to SIADH. We will continue with fluid restrictions on discharge at 1.5 L per day although he did recommend 1 g daily of sodium. We do have her on that. I will increase that to 1 g p.o. b.i.d. DISPOSITION: She will be discharged home, [facility]. She will follow up in [facility] in a week. We will have her see manager surgical, . Continue with fluid restriction. She is to report any further weakness or dizziness or any other medical complications. CONSIDERATIONS OF FOLLOWUP: Retrieve urine and serum osmolality studies from [facility], repeat echocardiogram, discuss possible removing her from Dilantin as this may be culprit. MEDICAL DECISION MAKING: Greater than 60 minutes was spent on this discharge planning and process. /[id number]/MODL LEA
== END 2017-02-16 14:10 | disposition home health service (06) ==
LOC: KA.MS 11:33
PROVIDERS: ADMIT Physician Assistant Medical; ATTEND Family Medicine
DX: E87.1 Hypo-osmolality and hyponatremia (principal); D72.829 Elevated white blood cell count, unspecified; G40.909 Epilepsy, unspecified, not intractable, without status epilepticus; E11.9 Type 2 diabetes mellitus without complications; I10 Essential (primary) hypertension; R35.0 Frequency of micturition; Z90.49 Acquired absence of other specified parts of digestive tract; Z98.890 Other specified postprocedural states; Z87.891 Personal history of nicotine dependence; Z79.82 Long term (current) use of aspirin; Z79.899 Other long term (current) drug therapy; Z79.84 Long term (current) use of oral hypoglycemic drugs
CPT/HCPCS: 36415; 80048; 82533; 82962; 83930; 83935; 84300; 84443; A9270; J7030; 96360; 96361; G0378; G0379

== ENCOUNTER 2017-02-27 14:57 | Observation (INO) | payer MEDICARE, MEDICAID ==
[2017-02-27] MEDS: Sodium Chloride 1 GM Tab PO SCH ×2 (17:06→20:49)
[2017-02-27] MEDS ORDERED: metFORMIN 500 MG Tab PO ONE (18:49)
[2017-02-27] MEDS ORDERED: Albuterol HFA 18 Gm Inhaler INH PRN (18:56)
[2017-02-27] MEDS: metFORMIN 500 MG Tab.ER PO SCH (19:54)
[2017-02-27] MEDS: Calcium Citrate/Vitamin D3 315 MG-250 Unit Tab PO SCH (20:45)
[2017-02-27] MEDS: atorvaSTATin 40 MG Tab PO SCH (20:46)
[2017-02-27] MEDS: LORazepam 0.5 MG Tab PO PRN (20:46)
[2017-02-27] MEDS: Meclizine 25 MG Tab PO PRN (20:46)
[2017-02-27] MEDS: Phenytoin 100 MG Cap.ER PO SCH (20:47)
[2017-02-28] MEDS: Levothyroxine 50 MCG Tab PO SCH (06:19)
[2017-02-28 07:38] LABS: CHLORIDE,CL 96 mmol/L (98-115); SODIUM,NA 134 mmol/L (136-145)
[2017-02-28] MEDS: Aspirin 81 MG Tab.Chew PO SCH (08:16)
[2017-02-28] MEDS: Calcium Citrate/Vitamin D3 315 MG-250 Unit Tab PO SCH ×2 (08:16→20:54)
[2017-02-28] MEDS: Sodium Chloride 1 GM Tab PO SCH ×4 (08:17→20:54)
[2017-02-28] MEDS: Losartan 50 MG Tab PO SCH (08:17)
[2017-02-28] MEDS: Phenytoin 100 MG Cap.ER PO SCH ×3 (08:17→20:54)
[2017-02-28] MEDS: Metoprolol Succinate 25 MG Tab.ER PO SCH (08:18)
[2017-02-28] MEDS: Vitamin B Complex Tab PO SCH (08:18)
[2017-02-28] MEDS: LORazepam 0.5 MG Tab PO PRN ×2 (08:22→18:14)
[2017-02-28] MEDS ORDERED: amLODIPine 5 MG Tab PO SCH ×2 (09:00→09:07)
--- NOTE | 2017-02-28 12:56 | PN ---
02/28/2017 PATIENT NAME: ONEAL GARG CHIEF COMPLAINT: Does feel better. Less dizziness. Less weakness. BRIEF HISTORY: This 71-year-old female presents to the clinic, saw RYAN Haider yesterday at [facility] due to increased weakness and shakiness, had some difficult time ambulating. 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 She had been on a fluid restriction with sodium increasing; however, this is her third admission for hyponatremia. She does live on her own in an apartment in [place], [place]. Her sodium levels have been ranging from 120s to 130s. It was 128 yesterday at [facility], it is now 135. We have her on a fluid restriction of 1000 mL. Last week she did require some IV fluids of normal saline, hypoisotonic in which her sodium did slightly improve; however, yesterday when she saw the provider she had a difficult time ambulating weakness. There were some concern whether or not she will be able to go back to her own home. This since this is the third admission, she does have a Nephrology appointment upcoming; however, she does plan on returning home. She also complained of some right upper quadrant abdominal pain or just feeling of full. She does have a history of a large diverticulum, unable to have surgery. She did not have any visual changes or any nausea or vomiting. No chest pains, palpitations, shortness of breath, or any seizure activities. Again she does have a Nephrology appointment in March. Vital signs are stable. We will perform orthostatics today. REVIEW OF SYSTEMS: GENERAL: Denies any headaches. Does have some mild dizziness. CV: Denies any chest pain. RESPIRATORY: Denies any shortness of breath. EXTREMITIES: Denies any edema. PHYSICAL EXAMINATION: VITAL SIGNS: Vital signs are stable. She is afebrile. LUNGS: Her lungs are clear to auscultation. CV: Regular rate and rhythm. No S3. Good radial pulses. No JVD. Carotid arteries: No bruit. GI: Nontender this morning. Hypotonic bowel tones. EXTREMITIES: She does have a mild 1+ nonpitting edema in the lower extremities. LABORATORY DATA: Significant lab this morning, sodium improved to 134. IMAGING: Head CT, noncontrast showed no acute findings. Finding is unremarkable. IMPRESSION/PLAN: 1. Hyponatremia, euvolemic, hypotonic, likely syndrome of inappropriate antidiuretic hormone secretion. Urine osmolality studies on previous admission demonstrated low serum sodium with a high urine sodium. At this time, it appears to respond to 1000 mL fluid restriction without concomitant IV saline. Also, we are going to continue with 1 g q.i.d. sodium. Orthostatics today. Pharmacy consultation to review possibility of facility getting Vaptan. 2. Weakness. Social Service consult was put in. The patient will have to have a more plan of action for her before she goes home. 3. History of seizures. Currently on Dilantin. Doubtful this is contributory, although she has had chronically low phenytoin levels. 4. History of hypertension. Currently she is on ARB and Norvasc. Blood pressure is slightly low today. Decrease Norvasc by 50% to 2.5 mg. currently she has 1+ edema. 5. Diabetes. Controlled on Glucophage. 6. Gastroesophageal reflux disease. She is on Zantac. OVERALL PLAN: We will see if we can get Vaptan in. This will have to be administered in the hospital if we can get this in. Pharmacy consultation. Social Service consultation. Continue with fluid restriction. Oral sodium. She does have a Nephrology consultation, right now we will keep her in observation status. Orthostatics today. /[id number]/MODL
[2017-02-28] MEDS: Meclizine 25 MG Tab PO PRN ×2 (14:26→20:53)
[2017-02-28] MEDS: metFORMIN 500 MG Tab.ER PO SCH (18:13)
[2017-02-28] MEDS: atorvaSTATin 40 MG Tab PO SCH (20:54)
[2017-03-01] MEDS: Levothyroxine 50 MCG Tab PO SCH ×2 (05:50→06:02)
[2017-03-01 06:21] VITALS: BP 129/62
[2017-03-01 07:24] LABS: CHLORIDE,CL 97 mmol/L (98-115); SODIUM,NA 132 mmol/L (136-145)
[2017-03-01] MEDS ORDERED: Famotidine 20 MG Tab PO SCH (08:00)
[2017-03-01] MEDS: LORazepam 0.5 MG Tab PO PRN (08:11)
[2017-03-01] MEDS: Meclizine 25 MG Tab PO PRN (08:11)
[2017-03-01] MEDS: Calcium Citrate/Vitamin D3 315 MG-250 Unit Tab PO SCH (08:12)
[2017-03-01] MEDS: Losartan 50 MG Tab PO SCH (08:12)
[2017-03-01] MEDS: Aspirin 81 MG Tab.Chew PO SCH (08:12)
[2017-03-01] MEDS: Phenytoin 100 MG Cap.ER PO SCH ×2 (08:14→13:04)
[2017-03-01] MEDS: Sodium Chloride 1 GM Tab PO SCH ×2 (08:14→13:02)
[2017-03-01] MEDS: Metoprolol Succinate 25 MG Tab.ER PO SCH (08:14)
[2017-03-01] MEDS: Vitamin B Complex Tab PO SCH (08:15)
--- NOTE | 2017-03-02 12:53 | DISCH ---
FINAL DIAGNOSES: 1. 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 2. Weakness, improved, negative nystagmus. 3. History of seizures, currently on Dilantin, encouraged to be removed off this; patient refused. 4. History of hypertension, she is currently on ARB and Norvasc, orthostatics negative. 5. Diabetes, controlled on Glucophage. 6. Gastroesophageal reflux disease, controlled well on Zantac. HISTORY: This 71-year-old female again presented to the clinic, saw a provider there at the [facility] due to increased weakness and shakiness, had some difficult time ambulating. She has had multiple admissions regarding low sodium level. She is with a diagnosis of hyponatremia, likely SIADH. She had been on fluid restrictions with increasing the sodium; she taken 1 g q.i.d. However, again this is her third admission. She lives in her own apartment in [place]. Her sodium levels have been ranging from 120s to 130s; however, it was 128 in the clinic. On discharge, it was much improved, [address] her on a fluid restriction diet at home. We do not know if she is completely complying with this, although she states she is. She had been into the clinic sometimes between admissions receiving IV isotonic saline. She does have a pending Nephrology consultation; this is in about 2 weeks, this is in [place]. She was admitted in observation, social service consult placed. HOSPITAL COURSE: The hospital course is quite uneventful. She was admitted with a sodium level below 130, it increased to 134, and it was slightly decreased down to 132 on discharge. However, she had much more improvement in her symptoms. We did perform the Hallpike maneuver that was negative. She did have negative nystagmus, although it was difficult to determine because she blinks quite a bit. Hemoglobin and her hematocrit are normal. Potassium is normal at 4.5. AST, ALT, alkaline phosphatase, albumin all normal. PHYSICAL EXAMINATION: VITAL SIGNS: Blood pressure 129/62 and heart rate 72. She is afebrile. Microbiology report none. Previous admission, she did have a serum osmolality low with a high urine osmolality with normal electrolytes in the urine. We have entertained vaptan; however, due to cost and unavailability, we will forego this right now. DISPOSITION: The patient was discharged from observation. We have no ongoing criteria to place her inpatient. medical services manager consult was placed. The patient is desiring to go home. She will see Nephrology. Again, she is to report any worsening dizziness or weakness. However, a lot of education was given to her regarding strict fluid restriction of 900 mL per day and of course with ongoing table salt and 1 g p.o. of sodium chloride. MEDICATION ADJUSTMENTS: None. Continue with sodium chloride q.i.d. DISPOSITION: The patient will be discharged home from observation. She will follow up with her primary care provider, Chani Stauffer, next week. CONSIDERATIONS AT FOLLOWUP: I did entertain adding a loop diuretic to her ARB to see if we could dry her out a little more; however, she does have a risk of dizziness, so I did not add Lasix. /[id number]/MODL
== END 2017-03-01 13:30 | disposition home or self-care (01) ==
LOC: KA.MS 14:57
PROVIDERS: ADMIT Physician Assistant Medical; ATTEND Family Medicine
DX: E87.1 Hypo-osmolality and hyponatremia (principal); R53.1 Weakness; I10 Essential (primary) hypertension; K21.9 Gastro-esophageal reflux disease without esophagitis; E11.9 Type 2 diabetes mellitus without complications; Z79.82 Long term (current) use of aspirin; Z79.899 Other long term (current) drug therapy; Z88.8 Allergy status to other drugs, medicaments and biological substances; E03.9 Hypothyroidism, unspecified; E78.00 Pure hypercholesterolemia, unspecified; F41.9 Anxiety disorder, unspecified; Z90.49 Acquired absence of other specified parts of digestive tract; Z98.890 Other specified postprocedural states; Z87.891 Personal history of nicotine dependence
CPT/HCPCS: 36415; 70450; 80048; 80053; 82962; 85025; 97161; A9270; G0378